=== PATIENT | male | born 1940 | race Caucasian/White ===

== ENCOUNTER 2017-08-11 10:17 | Emergency (ER) | payer MEDICARE, OTHER ==
--- NOTE | 2017-08-11 11:17 | XRAY Report ---
EXAM: CHEST RADIOGRAPHY EXAM DATE: 08/11/2017 10:59 AM. CLINICAL HISTORY: Cough. Shortness of breath. COMPARISON: None. TECHNIQUE: 2 views. FINDINGS: Lungs/Pleura: Ill-defined lobular opacity along the peripheral left mid lower lung measuring 2 cm. Mi nimal basilar scar/atelectasis. No pleural effusions . No vascular congestion. No pneumothorax. Mediastinum: Heart size is normal. Aorta slightly tortuous. Other: Degenerative changes of the thoracic spine. IMPRESSION: 1. Lobular 2 cm peripheral left mid and lower lung opacity which may represent an area of developing consolidation, parenchymal scarring or parenchymal nodule. Follow-up radiographs are warranted in 3-4 weeks to assess for change/resolution unless chest CT is considered more urgently clinically warrant ed. [facility] Referring Provider Line: [phone] SITE ID: [id number]
--- NOTE | 2017-08-11 12:06 | ED Physician Documentation ---
PD HPI URI - Stated complaint Stated Complaint: COLDS - Chief complaint Chief Complaint: Resp - History obtained from History obtained from: Patient - History of Present Illness Timing - onset: How many days ago (10) Timing duration: Days (10) Timing details: Gradual onset Pain level max: 4 Pain level now: 4 Associated symptoms: Fever (says no fevers, but chills. Stopped 2 days ago), Chills, Nasal congestion, Rhinorrhea, Productive cough (green. slightly bloody at times). No: Sore throat, Swollen nodes Contributing factors: Sick contact Improves by: Rest Worsened by: Activity, Breathing Similar symptoms before: Diagnosis (pneumonia) Recently seen: Not recently seen Review of Systems Constitutional: reports: Chills Nose: reports: Rhinorrhea / runny nose, Congestion Skin: denies: Rash Neurologic: denies: Headache PD PAST MEDICAL HISTORY - Past Medical History Past Medical History: No - Past Surgical History Past Surgical History: Yes General: Appendectomy - Present Medications Home Medications: Ambulatory Orders Medication Instructions Recorded Confirmed Doxycycline Hyclate 100 mg PO BID #20 capsule 08/11/17 - Allergies Allergies/Adverse Reactions: Allergies Allergy/AdvReac Type Severity Reaction Status Date / Time No Known Drug Allergies Allergy Verified 03/29/16 18:55 - Social History Does the pt smoke?: Yes Smoking Status: Current every day smoker Does the pt drink ETOH?: No Does the pt have substance abuse?: No - Immunizations Immunizations are current?: No - POLST Patient has POLST: No PD ED PE NORMAL - Vitals Vital signs reviewed: Yes - General General: Alert and oriented X 3, No acute distress, Well developed/nourished - HEENT HEENT: PERRL, Ears normal, Moist mucous membranes, Pharynx benign - Neck Neck: Supple, no meningeal sign - Cardiac Cardiac: RRR, Strong equal pulses - Respiratory Respiratory: No respiratory distress, Clear bilaterally - Abdomen Abdomen: Soft, Non tender, Non distended - Derm Derm: Warm and dry, No rash - Neuro Neuro: Alert and oriented X 3 - Psych Psych: Normal mood, Normal affect Results - Vitals Vitals: Vital Signs - 24 hr 08/11/17 10:21 Temperature 35.8 C L Heart Rate 81 Respiratory 17 Rate Blood Pressure 146/83 H O2 Saturation 99 Oxygen O2 Source Room air - Rads (name of study) cxr Radiology: Prelim report reviewed, EMP read contemporaneously (Lobular 2 cm peripheral left mid and lower lung opacity which may represent an area of developing consolidation, parenchymal scarring or parenchymal nodule. Follow-up radiographs are warranted in 3-4 weeks to assess for change/resolution unless chest CT is considered more urgently clinically warranted.) PD MEDICAL DECISION MAKING - ED course Complexity details: reviewed results, re-evaluated patient, considered differential, d/w patient ED course: Patient is a 76-year-old male who presents to the emergency department with 10 days of coughing. Has had chills but no fevers. He is a smoker. No hypoxia here. No respiratory distress. Lungs are clear to auscultation bilaterally. Appears to have pneumonia on chest x-ray, will treat with doxycycline. We will have him follow-up with his doctor for further evaluation and care. We will have him follow-up with his doctor for a repeat chest x-ray in 3-4 weeks as well. Patient counseled regarding signs and symptoms for which I believe and urgent re-evaluation would be necessary. Patient with good understanding of and agreement to plan and is comfortable going home at this time This document was made in part using voice recognition software. While efforts are made to proofread this document, sound alike and grammatical errors may occur. Departure - Departure Disposition: 01 Home, Self Care Clinical Impression: Pneumonia Qualifiers: Pneumonia type: due to unspecified organism Laterality: left Lung location: lower lobe of lung Qualified Code(s): J18.1 - Lobar pneumonia, unspecified organism Condition: Good Instructions: ED Pneumonia Adult Follow-Up: Wil Disla MD [Primary Care Provider] - Within 1 week Prescriptions: Doxycycline Hyclate 100 mg PO BID #20 capsule Comments: Take all antibiotics until gone. Return if you worsen. You need to have a repeat chest x-ray in 3-4 weeks to ensure that the infection has cleared and that there is no evidence of a tumor or mass under the infection.
[2017-08-11 12:15] VITALS: BP 139/76
== END 2017-08-11 12:20 | disposition home or self-care (01) ==
LOC: ED 10:17
DX: J18.9 Pneumonia, unspecified organism (principal); F17.200 Nicotine dependence, unspecified, uncomplicated
CPT/HCPCS: 71046; 99283

== ENCOUNTER 2017-08-29 09:21 | Emergency (ER) | payer MEDICARE, OTHER ==
--- NOTE | 2017-08-29 10:36 | XRAY Preliminary Report ---
Exam: XR CHEST 2 VIEW X-RAY IMPRESSION: 1. Resolving ill-defined opacity in the peripheral lower left lung. 2. Suspect mild lingular atelectasis or scarring. No teddy consolidation. 3. Mild hyperinflation. [facility] SITE ID: [id number]
--- NOTE | 2017-08-29 10:37 | XRAY Report ---
EXAM: CHEST RADIOGRAPHY EXAM DATE: 08/29/2017 10:21 AM. CLINICAL HISTORY: Cough. COMPARISON: 08/11/2017. TECHNIQUE: 2 views. FINDINGS: Lungs/Pleura: Decreased conspicuity of ill-defined lobular opacity in the peripheral left lower chest . Mild lingular opacities suggestive of atelectasis or scarring. No new airspace infiltrate or vascul ar congestion. Lungs are mildly hyperinflated. Clear right lung. No pleural effusion or pneumothorax. Mediastinum: Stable cardiomediastinal silhouette. No cardiomegaly. Bones: Unchanged. IMPRESSION: 1. Resolving ill-defined opacity in the peripheral lower left lung. 2. Suspect mild lingular atelectasis or scarring. No teddy consolidation. 3. Mild hyperinflation. [facility] Referring Provider Line: [phone] SITE ID: [id number]
[2017-08-29] MEDS ORDERED: IPRATROPIUM/ALBUTEROL 3 ML NEB INH STA (11:17)
--- NOTE | 2017-08-29 11:20 | ED Physician Documentation ---
PD HPI DYSPNEA - Stated complaint Stated Complaint: FLU LIKE SYMPTOM - Chief complaint Chief Complaint: Resp - History obtained from History obtained from: Patient - History of Present Illness Timing - onset: Yesterday Timing - details: Still present Worsened by: Exertion, Coughing Associated symptoms: Fever, Cough. No: Chest pain / discomfort Recently seen: Emergency Dept (He was seen here 2-1/2 weeks ago and diagnosed with pneumonia, for which he was treated with doxycycline.) - Additional information Additional information: The patient is a 76-year-old male who presents with productive cough that started yesterday and continues today. He reports associated shortness of breath and intermittent fever. He denies chest pain, headache, or sore throat. He was seen here 2 1/2 weeks ago and diagnosed with pneumonia for which he underwent 10 day course of doxycycline. His symptoms improved until yesterday. He continues to smoke cigarettes. Review of Systems Constitutional: reports: Fever Eyes: denies: Discharge Ears: denies: Ear pain Nose: reports: Congestion Throat: denies: Sore throat Cardiac: denies: Chest pain / pressure Respiratory: reports: Dyspnea, Cough GI: denies: Abdominal Pain, Nausea, Vomiting : denies: Dysuria Skin: denies: Rash Musculoskeletal: denies: Back pain, Extremity pain Neurologic: denies: Focal weakness, Numbness, Headache PD PAST MEDICAL HISTORY - Past Medical History Past Medical History: No Cardiovascular: None Neuro: None Endocrine/Autoimmune: None - Past Surgical History Past Surgical History: Yes General: Appendectomy - Present Medications Home Medications: Ambulatory Orders Medication Instructions Recorded Confirmed Benzonatate [Tessalon Perle] 100 mg PO BID PRN #10 capsule 08/29/17 Oseltamivir [Tamiflu] 75 mg PO ONCE #7 capsule 08/29/17 - Allergies Allergies/Adverse Reactions: Allergies Allergy/AdvReac Type Severity Reaction Status Date / Time No Known Drug Allergies Allergy Verified 08/29/17 09:53 - Social History Does the pt smoke?: Yes Smoking Status: Current every day smoker Does the pt drink ETOH?: No Does the pt have substance abuse?: No - Immunizations Immunizations are current?: No - POLST Patient has POLST: No PD ED PE NORMAL - Vitals Vital signs reviewed: Yes (Mild systolic hypertension initially.) - General General: Alert and oriented X 3, Well developed/nourished - HEENT HEENT: Atraumatic, Ears normal, Pharynx benign, Other (Decreased hearing ability in the right ear.) - Neck Neck: Supple, no meningeal sign, No adenopathy, No JVD - Cardiac Cardiac: RRR, No murmur - Respiratory Respiratory: Other (Expiratory wheezes on the left. No rales or rhonchi.) - Abdomen Abdomen: Soft, Non tender - Back Back: No CVA TTP - Derm Derm: No rash - Extremities Extremities: No edema, No calf tenderness / cord - Neuro Neuro: Alert and oriented X 3, No motor deficit, No sensory deficit Results - Vitals Vitals: Vital Signs - 24 hr 08/29/17 12:28 Temperature 36.3 C L Heart Rate 73 Respiratory 22 Rate Blood Pressure 143/63 H O2 Saturation 98 Oxygen O2 Source Room air - Labs Labs: Laboratory Tests 08/29/17 11:25 Influenza A (Rapid) POS Influenza B (Rapid) NEG Influenza Types A,B Ag + H - Rads (name of study) CXR Radiology: Prelim report reviewed, EMP read contemporaneously, See rad report ( Resolving ill-defined opacity in the peripheral lower left lung. Suspect mild lingular atelectasis or scarring. No teddy consolidation. Mild hyperinflation. ) PD MEDICAL DECISION MAKING - ED course Complexity details: reviewed old records, reviewed results, re-evaluated patient , considered differential, d/w patient ED course: The patient's presentation is significant for influenza, with associated dyspnea and wheezing. Chest x-ray reveals improvement of the left upper lobe infiltrate compared to previous chest x-ray of 08/11/2017. Treatment in the emergency department included administration of DuoNeb nebulizer, which cleared his wheezing. Tamiflu 75 mg was administered orally. He is being discharged with prescriptions for Tamiflu and for Tessalon Perles. I discussed with him the expected course of illness, symptomatic treatment and outpatient follow-up, as well as potentially worrisome signs or symptoms that should prompt reevaluation in the emergency department. Departure - Departure Disposition: 01 Home, Self Care Clinical Impression: Influenza B Condition: Stable Instructions: ED Flu Follow-Up: Wil Disla MD [Provider Admit Priv/Credential] - Prescriptions: Benzonatate [Tessalon Perle] 100 mg PO BID PRN #10 capsule PRN Reason: Cough Oseltamivir [Tamiflu] 75 mg PO ONCE #7 capsule Comments: You can use Tamiflu as prescribed. You can use Tessalon as prescribed if needed for cough. You can use Tylenol or ibuprofen if needed for fever or discomfort. Follow up with your primary physician within 1-2 weeks. Call to schedule appointment. Return to the emergency department if you develop increasing difficulty breathing, or otherwise worsening symptoms. Discharge Date/Time: 08/29/17 12:45
[2017-08-29] MEDS ORDERED: OSELTAMIVIR 75 MG CAPSULE PO STA (12:07)
[2017-08-29 12:28] VITALS: BP 143/63
== END 2017-08-29 12:45 | disposition home or self-care (01) ==
LOC: ED 09:21
DX: J10.1 Influenza due to other identified influenza virus with other respiratory manifestations (principal); F17.200 Nicotine dependence, unspecified, uncomplicated
CPT/HCPCS: 71046; 87275; 87276; 94640; 99283; A9270; J7620

== ENCOUNTER 2018-10-01 14:02 | Outpatient (CLI) | payer MEDICARE, OTHER ==
[2018-10-01 14:33] LABS: CREATININE 0.9 mg/dL (0.6-1.2)
--- NOTE | 2018-10-01 16:20 | CT Report ---
Reason: CHOLESTEATOMA Procedure Date: 10/01/2018 Accession Number: [id number] / [id number] Procedure: CT - IAC'S WO CPT Code: 30084 FULL RESULT: EXAM: CT TEMPORAL BONE EXAM DATE: 10/01/2018 03:34 PM. CLINICAL HISTORY: Cholesteatoma. COMPARISON: None. TECHNIQUE: Routine axial CT imaging performed through the temporal bones. Reconstructions: Coronal, sagittal, Stenver orientation, Poschl orientation. IV contrast: None. In accordance with CT protocol optimization, one or more of the following dose reduction techniques were utilized for this exam: automated exposure control, adjustment of mA and/or KV based on patient size, or use of iterative reconstructive technique. FINDINGS: Right: External Auditory Canal: Patent without mass lesion or exostosis. Middle Ear and Ossicles: Tympanic membrane is normal. The middle ear, including Prussak's space, is clear. The scutum and ossicles are intact without bone erosion. Course of the facial nerve is unremarkable. Cochlea and Vestibular Apparatus: The cochlea and vestibular apparatus demonstrate normal morphology. No evidence of semicircular canal dehiscence. No evidence of vestibular aqueduct enlargement. Internal Auditory Canals: Unremarkable. Bones: Normal. No fracture or bone lesions. Mastoids: Opacification is seen involving several inferior mastoid air cells. Otherwise mastoid air cells and mastoid antrum are clear. Left: External Auditory Canal: Moderate circumferential soft tissue thickening is seen within the EAC. Lobularity and irregularity of the cortical surface is seen especially anteriorly and inferiorly. No extension through the temporal bone into mastoid air cells or the TMJ is appreciated. Middle Ear and Ossicles: Mild thickening of the tympanic membrane is noted. Patchy areas of soft tissue opacity are seen in the middle ear cavity. Small focus of soft tissue density is seen at the level of the Prussak space. Mild soft tissue density is seen at the level of the oval window. The scutum and ossicles are intact without definite bone erosion. Course of the facial nerve is unremarkable. Cochlea and Vestibular Apparatus: The cochlea and vestibular apparatus demonstrate normal morphology. No evidence of semicircular canal dehiscence. No evidence of vestibular aqueduct enlargement. Internal Auditory Canals: Unremarkable. Bones: Normal. No fracture or bone lesions. Mastoids: Opacification and partial opacification are seen diffusely involving peripheral mastoid air cells. The mastoid antrum is clear. Other: None. IMPRESSION: CT scan of the right temporal bone: 1. Opacification is seen involving several inferior mastoid air cells. 2. Otherwise negative CT scan of the temporal bone. CT scan of the left temporal bone: 1. Circumferential soft tissue thickening in the EAC. Mild cortical irregularity is seen predominating in the inferior and anterior margin of the EAC. Findings could represent EAC cholesteatoma. Differential considerations would include fibrosis and inflammatory debris. 2. Small foci of soft tissue density seen in the middle ear cavity. This is located at Prussak's space and at the level of the oval window. Mild thickening and retraction of the tympanic membrane is seen. Findings may represent postinflammatory sequela. No definite bone erosion is seen to suggest cholesteatoma. 3. Diffuse opacification and partial opacification involving peripheral left mastoid air cells. [facility]
== END 2018-10-01 14:03 | disposition home or self-care (01) ==
LOC: LAB 14:02 → DI 14:03
PROVIDERS: ATTEND Specialist
DX: H71.92 Unspecified cholesteatoma, left ear (principal)
CPT/HCPCS: 36415; 70480; 82565

== ENCOUNTER 2021-03-08 15:52 | Emergency (ER) | payer MEDICARE, OTHER ==
[2021-03-08 16:18] LABS: BASOPHILS # (AUTO) 0.1 10^3/uL (0.0-0.1); BASOPHILS % (AUTO) 0.6 %; EOSINOPHILS # (AUTO) 0.1 10^3/uL (0.0-0.7); EOSINOPHILS % (AUTO) 1.1 %; HCT - HEMATOCRIT 45.6 % (42.0-52.0); HGB - HEMOGLOBIN 15.2 g/dL (14.0-18.0); LYMPHOCYTES # (AUTO) 1.5 10^3/uL (1.5-3.5); LYMPHOCYTES % (AUTO) 12.9 %; MEAN CORPUSCULAR HEMOGLOBIN 31.7 pg (27.0-31.0); MEAN CORPUSCULAR HGB CONC 33.3 g/dL (32.0-36.0); MONOCYTES # (AUTO) 0.7 10^3/uL (0.0-1.0); MONOCYTES % (AUTO) 5.9 %; NEUTROPHILS # (AUTO) 9.1 10^3/uL (1.5-6.6); NEUTROPHILS % (AUTO) 79.2 %; PLT - PLATELET COUNT 222 10^3/uL (130-450); RED CELL DISTRIBUTION WIDTH 13.1 % (12.0-15.0); WHITE BLOOD COUNT 11.5 x10^3/uL (4.8-10.8)
[2021-03-08] MEDS ORDERED: IPRATROPIUM 0.2 MG/ML NEB INH STA (16:18)
[2021-03-08] MEDS ORDERED: ALBUTEROL NEB 2.5 MG/3 ML INH STA (16:18)
--- NOTE | 2021-03-08 16:21 | ED Physician Documentation ---
History of Present Illness - Stated complaint Stated Complaint: SOA/WEAK/DIZZY - Chief complaint Chief Complaint: General - Additonal information Additional information: 80-year-old male presents the emergency department for evaluation of acute onset dyspnea. He reports that at home he was in an enclosed room, with the window open, using an alcohol-based detergent to clean carpet that had gotten wet. He had been in the room for about an hour to 90 minutes when he began to develop the respiratory distress. He has had no recent cough, cold congestion or fevers. He is an active daily tobacco user. His thinks that he has undiagnosed COPD but has never been treated for this. He takes no medications with the exception of a daily multivitamin. He is vaccinated for COVID-19. He denies any history of heart disease. Review of Systems Constitutional: denies: Fever, Chills Eyes: reports: Reviewed and negative Ears: reports: Reviewed and negative Nose: reports: Reviewed and negative Throat: reports: Reviewed and negative Cardiac: reports: Reviewed and negative Respiratory: reports: Dyspnea. denies: Cough GI: denies: Abdominal Pain, Abdominal Swelling, Nausea : denies: Dysuria, Frequency Skin: reports: Reviewed and negative Musculoskeletal: reports: Reviewed and negative Neurologic: reports: Reviewed and negative PD PAST MEDICAL HISTORY - Past Medical History Cardiovascular: None Endocrine/Autoimmune: None - Past Surgical History Past Surgical History: Yes General: Appendectomy - Present Medications Home Medications: Ambulatory Orders Medication Instructions Recorded Confirmed Albuterol Sulfate [Proair Hfa 1 - 2 puffs INH Q4H PRN #1 gm 03/08/21 Inhaler] Multivit-Min/FA/Lycopen/Lutein 1 each PO DAILY 03/08/21 03/08/21 [Centrum Silver Men Tablet] dexAMETHasone [Decadron] 4 mg PO DAILY #4 tablet 03/08/21 - Allergies Allergies/Adverse Reactions: Allergies Allergy/AdvReac Type Severity Reaction Status Date / Time No Known Drug Allergies Allergy Verified 03/08/21 15:56 - Social History Does the pt smoke?: Yes Smoking Status: Current every day smoker Does the pt drink ETOH?: No Does the pt have substance abuse?: No - Immunizations Immunizations are current?: No - POLST Patient has POLST: No PD ED PE EXPANDED - General General: Alert, No acute distress - Neck Neck: Supple w/out meningeal sx. No: Adenopathy - Cardiac Cardiac: Regular Rate, Radial strong equal, Cap refill < 2 sec, Prolonged cap refill. No: Murmur Present - Respiratory Respiratory: Labored (Mild tachypnea in the mid 20s. Saturations 96% room air. Faint global respiratory wheeze. No crackles or rhonchi appreciated.), Wheezing - Abdomen Abdomen: Normal Bowel sounds. No: Tender to palpation - Back Back: Normal exam - Extremities Extremities: Normal. No: Deformity, Tenderness - Neuro Neuro: Alert and Oriented X 3, CNII-XII intact - GCS Eye Opening: Spontaneous Motor: Obeys Commands Verbal: Oriented Total: 15 Results - Vitals Vitals: Vital Signs - 24 hr 03/08/21 03/08/21 03/08/21 15:56 16:17 16:45 Temperature 36.5 C Heart Rate 85 68 Respiratory 16 16 Rate Blood Pressure 164/72 H O2 Saturation 94 96 Oxygen O2 Source Room air - EKG (time done) 1628 Rate: Rate (enter#) (72) Rhythm: NSR [place]: Normal Intervals: Normal IA QRS: Normal, Low voltage Ischemia: Normal ST segments Compare to prior EKG: Old EKG unavailable Computer interpretation: Agree with computer - Labs Labs: Laboratory Tests 03/08/21 03/08/21 03/08/21 16:11 16:11 16:11 WBC 11.5 H RBC 4.80 Hgb 15.2 Hct 45.6 MCV 95.0 H MCH 31.7 H MCHC 33.3 RDW 13.1 Plt Count 222 MPV 9.0 Neut # (Auto) 9.1 H Lymph # (Auto) 1.5 Sharp # (Auto) 0.7 Eos # (Auto) 0.1 Baso # (Auto) 0.1 Absolute Nucleated RBC 0.00 Nucleated RBC % 0.0 Sodium 135 Potassium 3.9 Chloride 100 L Carbon Dioxide 25 Anion Gap 10.0 BUN 15 Creatinine 0.9 Estimated GFR (MDRD) 81 L Glucose 106 H Calcium 9.1 Total Bilirubin 1.4 H AST 23 ALT 17 Alkaline Phosphatase 42 Troponin I High Sens 6.6 B-Natriuretic Peptide Total Protein 7.2 Albumin 4.4 Globulin 2.8 Albumin/Globulin Ratio 1.6 Lipase 27 Nasal Adenovirus (PCR) Nasal B. parapertussis DNA (PCR) Nasal Coronavir 229E PCR Nasal Coronavir HKU1 PCR Nasal Coronavir NL63 PCR Nasal Coronavir OC43 PCR Nasal Enterovir/Rhinovir PCR Nasal Influenza B PCR Nasal Influenza A PCR Nasal Parainfluen 1 PCR Nasal Parainfluen 2 PCR Nasal Parainfluen 3 PCR Nasal Parainfluen 4 PCR Nasal RSV (PCR) Nasal B.pertussis DNA PCR Nasal C.pneumoniae (PCR) [place] Human Metapneumo PCR Nasal M.pneumoniae (PCR) Nasal SARS-CoV-2 (PCR) 03/08/21 03/08/21 16:11 16:21 WBC RBC Hgb Hct MCV MCH MCHC RDW Plt Count MPV Neut # (Auto) Lymph # (Auto) Sharp # (Auto) Eos # (Auto) Baso # (Auto) Absolute Nucleated RBC Nucleated RBC % Sodium Potassium Chloride Carbon Dioxide Anion Gap BUN Creatinine Estimated GFR (MDRD) Glucose Calcium Total Bilirubin AST ALT Alkaline Phosphatase Troponin I High Sens B-Natriuretic Peptide 46 Total Protein Albumin Globulin Albumin/Globulin Ratio Lipase Nasal Adenovirus (PCR) NOT DETECTED Nasal B. parapertussis DNA (PCR) NOT DETECTED Nasal Coronavir 229E PCR NOT DETECTED Nasal Coronavir HKU1 PCR NOT DETECTED Nasal Coronavir NL63 PCR NOT DETECTED Nasal Coronavir OC43 PCR NOT DETECTED Nasal Enterovir/Rhinovir PCR NOT DETECTED Nasal Influenza B PCR NOT DETECTED Nasal Influenza A PCR NOT DETECTED Nasal Parainfluen 1 PCR NOT DETECTED Nasal Parainfluen 2 PCR NOT DETECTED Nasal Parainfluen 3 PCR NOT DETECTED Nasal Parainfluen 4 PCR NOT DETECTED Nasal RSV (PCR) NOT DETECTED Nasal B.pertussis DNA PCR NOT DETECTED Nasal C.pneumoniae (PCR) NOT DETECTED [place] Human Metapneumo PCR NOT DETECTED Nasal M.pneumoniae (PCR) NOT DETECTED Nasal SARS-CoV-2 (PCR) NOT DETECTED - Rads (name of study) CXR Radiology: Final report received (No acute cardiopulmonary process) PD MEDICAL DECISION MAKING - ED course Complexity details: reviewed results, re-evaluated patient, d/w patient ED course: 80-year-old male who is an active daily smoker presents emergency department with acute onset dyspnea. This occurred when he had been in an enclosed room though the window was open cleaning the carpets with an alcohol-based coach cleaner. Initially he presented mildly tachypneic with respiratory rate in the 40s and with some wheeze. The tachypnea and the wheeze 100% resolved following an albuterol treatment with Atrovent. Chest x-ray is unremarkable and does not show findings of pneumonia. Respiratory PCR negative for Covid. Screening labs are essentially unremarkable including high-sensitivity troponin. His EKG is nonischemic. This gentleman is a daily smoker and I suspect that what he likely has is a reactive airway disorder secondary to the chemical exposure while cleaning the carpets. He will be discharged with a 5-day course of Decadron as well as an albuterol inhaler. The patient and his are advised to fully air out his bedroom before he sleeps in it again. Emergent return precautions were discussed for worsening symptoms. Departure - Departure Disposition: 01 Home, Self Care Clinical Impression: Shortness of breath Condition: Stable Record reviewed to determine appropriate education?: Yes Prescriptions: dexAMETHasone [Decadron] 4 mg PO DAILY #4 tablet Albuterol Sulfate [Proair Hfa Inhaler] 1 - 2 puffs INH Q4H PRN #1 gm PRN Reason: Shortness Of Air/Wheezing Comments: Marco Antonio foreman were seen in the emergency department today after developing respiratory distress while cleaning the carpets of your bedroom with an alcohol- based barrel cleaner with only the window open a short way. You most likely have a reactive airway disease that has improved with the breathing treatment we gave you. Because you are a daily smoker and I suspect that you have underlying COPD I would like you to fill the prescription for the steroids and begin taking every day for the next 4 days. Your first dose was given here in the emergency department. However your screening labs EKG and chest x-ray are all essentially normal. I encourage you to sleep outside of your bedroom for the next 48 to 72 hours until the carpet is completely dry and free of the chemicals as I would hate for you to have another bout of respiratory distress. Please return to the emergency department with any further emergent concerns.
[2021-03-08 16:33] LABS: ALBUMIN 4.4 g/dL (3.2-5.5); ALBUMIN/GLOBULIN RATIO 1.6 (1.0-2.2); BILIRUBIN,TOTAL 1.4 mg/dL (0.2-1.0); CALCIUM 9.1 mg/dL (8.5-10.3); CREATININE 0.9 mg/dL (0.6-1.2); POTASSIUM 3.9 mmol/L (3.5-5.0); TOTAL PROTEIN 7.2 g/dL (6.7-8.2)
--- NOTE | 2021-03-08 16:44 | XRAY Report ---
PROCEDURE: Chest 1 View X-Ray INDICATIONS: Chest Pain TECHNIQUE: One view of the chest was acquired. COMPARISON: 08/29/2017 FINDINGS: Surgical changes and devices: None. Lungs and pleura: No pleural effusions or pneumothorax. Lungs are clear. Mediastinum: Mediastinal contours appear normal. Heart size is normal. Bones and chest wall: No suspicious bony lesions. Overlying soft tissues appear unremarkable. IMPRESSION: No evidence acute pulmonary process. Reviewed by: Rashid Cox MD on 03/08/2021 4:43 PM PDT Approved by: Rashid Cox MD on 03/08/2021 4:43 PM PDT Station ID: [id number]
[2021-03-08] MEDS ORDERED: IPRATROPIUM/ALBUTEROL 3 ML NEB INH SCH (17:00)
[2021-03-08 17:20] LABS: B. PARAPERTUSSIS- RESP PCR PAN NOT DETECTED; B. PERTUSSIS- RESP PCR PANEL NOT DETECTED; C. PNEUMONIAE- RESP PCR PANEL NOT DETECTED; CORONAVIRUS 229E-RESP PCR NOT DETECTED; CORONAVIRUS HKU1-RESP PCR NOT DETECTED; CORONAVIRUS NL63-RESP PCR NOT DETECTED; CORONAVIRUS OC43-RESP PCR NOT DETECTED; HUMAN METAPNEUMOVIRUS NOT DETECTED; INFLUENZA A- RESP PCR PANEL NOT DETECTED; INFLUENZA B - RESP PCR PANEL NOT DETECTED; M. PNEUMONIAE- RESP PCR PANEL NOT DETECTED; PARAINFLUENZA VIRUS 1 NOT DETECTED; PARAINFLUENZA VIRUS 2 NOT DETECTED; PARAINFLUENZA VIRUS 3 NOT DETECTED; PARAINFLUENZA VIRUS 4 NOT DETECTED; RHINOVIRUS/ENTEROVIRUS NOT DETECTED; RSV- RESP PCR PANEL NOT DETECTED; SARS-CoV-2 -RESP PCR PANEL NOT DETECTED
[2021-03-08] MEDS ORDERED: DEXAMETHASONE 10 MG/ML VIAL PO STA (17:29)
[2021-03-08] MEDS ORDERED: CHERRY SYRUP 10 ML UDC PO ONE (17:29)
[2021-03-08 17:30] VITALS: BP 138/70
== END 2021-03-08 17:51 | disposition home or self-care (01) ==
LOC: ED 15:52
DX: R06.02 Shortness of breath (principal); Z72.0 Tobacco use; Z20.822 Contact with and (suspected) exposure to COVID-19
CPT/HCPCS: 36415; 71045; 80053; 83690; 83880; 84484; 85025; 87631; 93005; 94640; 99283; 99284; A9270; 0202U

== ENCOUNTER 2022-05-04 11:39 | Emergency (ER) | payer MEDICARE, OTHER ==
[2022-05-04 12:02] VITALS: BP 134/67
--- NOTE | 2022-05-04 13:44 | ED Physician Documentation ---
PD HPI SKIN - Stated complaint Stated Complaint: MEDICATION REACTION - Chief complaint Chief Complaint: Wound - History obtained from History obtained from: Patient - Additional information Additional information: Patient is an 81-year-old male with a history of skin cancer presenting for evaluation of rash which he believes is a medication reaction. Patient sees a account executive and has been using 5 fluorouracil for quite some time but was recently recommended to apply it to a larger area of his scalp. He did this for the first time last night when he woke up this morning had severe discomfort to his scalp with crusting and yellow drainage. He did wash off the ointment.He denies fever, headache, Difficulty breathing. Review of Systems Constitutional: denies: Fever Nose: denies: Congestion Cardiac: denies: Chest pain / pressure Respiratory: denies: Dyspnea GI: denies: Abdominal Pain Skin: reports: Rash Musculoskeletal: denies: Back pain Neurologic: denies: Headache PD PAST MEDICAL HISTORY - Past Medical History Cardiovascular: None Endocrine/Autoimmune: None - Past Surgical History Past Surgical History: Yes General: Appendectomy - Present Medications Home Medications: Ambulatory Orders Medication Instructions Recorded Confirmed Albuterol Sulfate [Proair Hfa 1 - 2 puffs INH Q4H PRN #1 gm 03/08/21 Inhaler] Multivit-Min/FA/Lycopen/Lutein 1 each PO DAILY 03/08/21 03/08/21 [Centrum Silver Men Tablet] dexAMETHasone [Decadron] 4 mg PO DAILY #4 tablet 03/08/21 Cetirizine [ZyrTEC] 10 mg PO DAILY #7 tablet 05/04/22 cephALEXin [Keflex] 500 mg PO Q6H #28 cap 05/04/22 - Allergies Allergies/Adverse Reactions: Allergies Allergy/AdvReac Type Severity Reaction Status Date / Time No Known Drug Allergies Allergy Verified 03/08/21 15:56 - Social History Does the pt smoke?: Yes Smoking Status: Current every day smoker Does the pt drink ETOH?: No Does the pt have substance abuse?: No - Immunizations Immunizations are current?: No - POLST Patient has POLST: No PD ED PE NORMAL - General General: Alert and oriented X 3, No acute distress, Well developed/nourished - HEENT HEENT: Atraumatic, Pharynx benign, Other (Redness and peeling to Large area of frontal scalp and right outer ear scalp with areas of crusted yellow drainage, no vesicles) - Neck Neck: Supple, no meningeal sign - Respiratory Respiratory: No respiratory distress - Derm Derm: Other (Redness and peeling to Large area of frontal scalp and right outer ear scalp with areas of crusted yellow drainage, no vesicles) - Neuro Neuro: Normal speech PD ED PE EXPANDED - HEENT HEENT Visual: 1 - rash 2 - rash Results - Vitals Vitals: Vital Signs - 24 hr 05/04/22 11:59 Temperature 37.0 C Heart Rate 70 Respiratory 18 Rate Blood Pressure 134/67 H O2 Saturation 99 Oxygen O2 Source Room air PD MEDICAL DECISION MAKING - ED course Complexity details: reviewed results, re-evaluated patient, d/w patient ED course: Patient with large area of redness and superficial skin peeling with patches of crusted yellow drainage to scalp in distribution of where he used 5- fluorouracil. Patient has washed off the ointment. I am concerned he is having an adverse reaction to this medication. I have recommended that he hold on us ing this medication until consulting with his account executive. I am also concerned that there is a superimposed infection as the areas of the yellow crusting and drainage are suspicious for impetigo so we will start patient on Keflex given widespread area. I do not want to use anything topically on Areas that are red And peeling. Rash does not appear toxic in nature such as SJS. Patient counseled on concerning symptoms to return for as well as need for follow-up with account executive. Departure - Departure Disposition: 01 Home, Self Care Clinical Impression: Impetigo Medication reaction Qualifiers: Encounter type: initial encounter Qualified Code(s): T50.905A - Adverse effect of unspecified drugs, medicaments and biological substances, initial encounter Condition: Stable Instructions: Impetigo, ED Drug React Allergic Follow-Up: [facility] [Provider Group] Prescriptions: cephALEXin [Keflex] 500 mg PO Q6H #28 cap Cetirizine [ZyrTEC] 10 mg PO DAILY #7 tablet Comments: You appear to be having a reaction to the topical medication you were prescribed. Please stop using this medication immediately. You can use cold compresses over the scalp to help with any discomfort. I will also send a prescription for an antibiotic to [facility] in [place] as I am concerned there is also a superimposed infection given the yellow drainage and crusting.I will also send a prescription for medication to help with an allergic reaction. Please call your account executive on Friday for close follow-up.If you have any worsening symptoms please return to the emergency department. Discharge Date/Time: 05/04/22 13:51
--- OUTSIDE RECORDS SUMMARY | 2022-05-04 13:44 | EXTERNAL MEDICAL SUMMARY RPT | Continuity of Care Document ---
:1940 Author Organization [facility] Address [address] [place] [phone] Phone Allergies and Intolerances date description facility type (no date) No Known Drug Allergies [facility] (unkn own) Encounters No information. Functional Status No information. Immunizations No information. Medications No information. Problems No information. Procedures No information. Results/Labs test date author facility value unit interpret ation Result panel 1 (unknown) (no date) (unknown) (unknown) (no value) (units (un known) unknown) (unknown) (no date) (unknown) (unknown) Date of (units (unkn own) Service: unknown) 03/22/22 (unknown) (no date) (unknown) (unknown) (no value) (units (un known) unknown) (unknown) (no date) (unknown) (unknown) Allergies (units (unk nown) unknown) (unknown) (no date) (unknown) (unknown) Emergency (units (unk nown) Report unknown) (unknown) (no date) (unknown) (unknown) [facility] (units (unkn own) [facility] [address] unknown) [address] [place] [phone] (unknown) (no date) (unknown) (unknown) (no value) (units (un known) unknown) (unknown) (no date) (unknown) (unknown) Patient left (units ( unknown) without being unknown) seen (unknown) (no date) (unknown) (unknown) [id number] (units (unkn own) unknown) (unknown) (no date) (unknown) (unknown) Age/Sex: 81 / (units (unknown) M unknown) (unknown) (no date) (unknown) (unknown) Allergy/AdvRea (units (unknown) c Type Severity unknown) Reaction Status Date / Time (unknown) (no date) (unknown) (unknown) Blood Pressure (units (unknown) 192/80 H unknown) 03/22/22 09:40 (unknown) (no date) (unknown) (unknown) Chief (units (unkn own) complaint: unknown) Skin/Abscess/Fo reign Body (unknown) (no date) (unknown) (unknown) Clinical (units (unkn own) Impression: unknown) (unknown) (no date) (unknown) (unknown) : (units (unkn own) 1940 unknown) Acct:[id number] (unknown) (no date) (unknown) (unknown) Departure (units (unk nown) unknown) (unknown) (no date) (unknown) (unknown) Discharge Plan (units (unknown) unknown) (unknown) (no date) (unknown) (unknown) ER Physician: (units (unknown) Marbin Johnson unknown) P.A-C (unknown) (no date) (unknown) (unknown) Exam (units (unkn own) unknown) (unknown) (no date) (unknown) (unknown) General (units (unkn own) unknown) (unknown) (no date) (unknown) (unknown) HPI - (units (unkn own) Skin/Abscess/Fo unknown) reign Bdy (unknown) (no date) (unknown) (unknown) Initial Vital (units (unknown) Signs unknown) (unknown) (no date) (unknown) (unknown) Initial Vital (units (unknown) Signs: unknown) (unknown) (no date) (unknown) (unknown) Limitations: (units ( unknown) no limitations unknown) (unknown) (no date) (unknown) (unknown) Mode of (units (unkn own) arrival: unknown) Ambulatory (unknown) (no date) (unknown) (unknown) No Known Drug (units (unknown) Allergies unknown) Allergy Verified 03/22/22 09:45 (unknown) (no date) (unknown) (unknown) Oxygen (units (unkn own) Delivery Method unknown) 03/22/22 09:40 (unknown) (no date) (unknown) (unknown) Patient (units (unkn own) Disposition: unknown) Left Without Being Seen (unknown) (no date) (unknown) (unknown) Patient (units (unkn own) History unknown) (unknown) (no date) (unknown) (unknown) Patient: (units (unkn own) Marco Antonio Buck unknown) MR#: [id number] (unknown) (no date) (unknown) (unknown) Pulse Oximetry (units (unknown) 97 08/19/22 unknown) 09:40 (unknown) (no date) (unknown) (unknown) Pulse Rate 76 (units (unknown) 03/22/22 09:40 unknown) (unknown) (no date) (unknown) (unknown) Related Data (units ( unknown) unknown) (unknown) (no date) (unknown) (unknown) Respiratory (units (u nknown) Rate 15 unknown) 03/22/22 09:40 (unknown) (no date) (unknown) (unknown) Signed By: (units (un known) unknown) (unknown) (no date) (unknown) (unknown) Smoking (units (unkn own) Status: Unknown unknown) if ever smoked (unknown) (no date) (unknown) (unknown) Smoking (units (unkn own) Status: Unknown unknown) if ever smoked (unknown) (no date) (unknown) (unknown) Social History (units (unknown) unknown) (unknown) (no date) (unknown) (unknown) Source: (units (unkn own) patient unknown) (unknown) (no date) (unknown) (unknown) Stated (units (unkn own) complaint: Skin unknown) on hands and feet peeling (unknown) (no date) (unknown) (unknown) Substance Use (units (unknown) Type: does not unknown) use (unknown) (no date) (unknown) (unknown) Temperature (units (u nknown) 98.7 F 03/22/22 unknown) 09:40 (unknown) (no date) (unknown) (unknown) Time Seen by (units ( unknown) Provider: unknown) 03/22/22 12:00 (unknown) (no date) (unknown) (unknown) Vital Signs (units (u nknown) unknown) (unknown) (no date) (unknown) (unknown) alcohol intake (units (unknown) frequency: unknown) holidays/specia l occasions only Result panel 2 (unknown) (no date) (unknown) (unknown) (no value) (units (un known) unknown) (unknown) (no date) (unknown) (unknown) Date of (units (unkn own) Service: unknown) 03/22/22 (unknown) (no date) (unknown) (unknown) (no value) (units (un known) unknown) (unknown) (no date) (unknown) (unknown) <Electronicall (units (unknown) y signed by unknown) Marbin Johnson> (unknown) (no date) (unknown) (unknown) 03/22/22 191 (units (unknown) unknown) (unknown) (no date) (unknown) (unknown) Allergies (units (unk nown) unknown) (unknown) (no date) (unknown) (unknown) Emergency (units (unk nown) Report unknown) (unknown) (no date) (unknown) (unknown) [facility] (units (unkn own) [facility] [address] unknown) [address] [place] [phone] (unknown) (no date) (unknown) (unknown) (no value) (units (un known) unknown) (unknown) (no date) (unknown) (unknown) Patient left (units ( unknown) without being unknown) seen (unknown) (no date) (unknown) (unknown) [id number] (units (unkn own) unknown) (unknown) (no date) (unknown) (unknown) Age/Sex: 81 / (units (unknown) M unknown) (unknown) (no date) (unknown) (unknown) Allergy/AdvRea (units (unknown) c Type Severity unknown) Reaction Status Date / Time (unknown) (no date) (unknown) (unknown) Blood Pressure (units (unknown) 192/80 H unknown) 03/22/22 09:40 (unknown) (no date) (unknown) (unknown) Chief (units (unkn own) complaint: unknown) Skin/Abscess/Fo reign Body (unknown) (no date) (unknown) (unknown) Clinical (units (unkn own) Impression: unknown) (unknown) (no date) (unknown) (unknown) : (units (unkn own) 1940 unknown) Acct:[id number] (unknown) (no date) (unknown) (unknown) Departure (units (unk nown) unknown) (unknown) (no date) (unknown) (unknown) Discharge Plan (units (unknown) unknown) (unknown) (no date) (unknown) (unknown) ER Physician: (units (unknown) Marbin Johnson unknown) P.Mercedes (unknown) (no date) (unknown) (unknown) Exam (units (unkn own) unknown) (unknown) (no date) (unknown) (unknown) General (units (unkn own) unknown) (unknown) (no date) (unknown) (unknown) HPI - (units (unkn own) Skin/Abscess/Fo unknown) reign Bdy (unknown) (no date) (unknown) (unknown) HPI narrative: (units (unknown) unknown) (unknown) (no date) (unknown) (unknown) History of (units (un known) Present Illness unknown) (unknown) (no date) (unknown) (unknown) Initial Vital (units (unknown) Signs unknown) (unknown) (no date) (unknown) (unknown) Initial Vital (units (unknown) Signs: unknown) (unknown) (no date) (unknown) (unknown) Limitations: (units ( unknown) no limitations unknown) (unknown) (no date) (unknown) (unknown) MDM - (units (unkn own) Skin/Abscess/Fo unknown) reign Bdy (unknown) (no date) (unknown) (unknown) MDM Narrative (units (unknown) unknown) (unknown) (no date) (unknown) (unknown) Medical (units (unkn own) decision making unknown) narrative: (unknown) (no date) (unknown) (unknown) Mode of (units (unkn own) arrival: unknown) Ambulatory (unknown) (no date) (unknown) (unknown) No Known Drug (units (unknown) Allergies unknown) Allergy Verified 03/22/22 09:45 (unknown) (no date) (unknown) (unknown) Oxygen (units (unkn own) Delivery Method unknown) 03/22/22 09:40 (unknown) (no date) (unknown) (unknown) Patient (units (unkn own) Disposition: unknown) Left Without Being Seen (unknown) (no date) (unknown) (unknown) Patient (units (unkn own) History unknown) (unknown) (no date) (unknown) (unknown) Patient was (units (u nknown) triaged and unknown) roomed by the nurse and left before being seen by this (unknown) (no date) (unknown) (unknown) Patient: (units (unkn own) Marco Antonio Buck unknown) MR#: [id number] (unknown) (no date) (unknown) (unknown) Pulse Oximetry (units (unknown) 97 03/22/22 unknown) 09:40 (unknown) (no date) (unknown) (unknown) Pulse Rate 76 (units (unknown) 03/22/22 09:40 unknown) (unknown) (no date) (unknown) (unknown) Related Data (units ( unknown) unknown) (unknown) (no date) (unknown) (unknown) Respiratory (units (u nknown) Rate 15 unknown) 03/22/22 09:40 (unknown) (no date) (unknown) (unknown) Signed By: (units (un known) unknown) (unknown) (no date) (unknown) (unknown) Smoking (units (unkn own) Status: Unknown unknown) if ever smoked (unknown) (no date) (unknown) (unknown) Smoking (units (unkn own) Status: Unknown unknown) if ever smoked (unknown) (no date) (unknown) (unknown) Social History (units (unknown) unknown) (unknown) (no date) (unknown) (unknown) Source: (units (unkn own) patient unknown) (unknown) (no date) (unknown) (unknown) Stated (units (unkn own) complaint: Skin unknown) on hands and feet peeling (unknown) (no date) (unknown) (unknown) Substance Use (units (unknown) Type: does not unknown) use (unknown) (no date) (unknown) (unknown) Temperature (units (u nknown) 98.7 F 03/22/22 unknown) 09:40 (unknown) (no date) (unknown) (unknown) Time Seen by (units ( unknown) Provider: unknown) 03/22/22 12:00 (unknown) (no date) (unknown) (unknown) Vital Signs (units (u nknown) unknown) (unknown) (no date) (unknown) (unknown) alcohol intake (units (unknown) frequency: unknown) holidays/specia l occasions only (unknown) (no date) (unknown) (unknown) provider. (units (unk nown) unknown) Result panel 3 (unknown) (no (unknown) (unknown) (no value) (units (unk nown) date) unknown) (unknown) (no (unknown) (unknown) Date of Service: (units (unknown) date) 03/22/22 unknown) (unknown) (no (unknown) (unknown) (no value) (units (unk nown) date) unknown) (unknown) (no (unknown) (unknown) <Electronically (units (unknown) date) signed by Marbin unknown) Sudhakar Johnson> (unknown) (no (unknown) (unknown) <Electronically (units (unknown) date) signed by Shauna unknown) Donnell D.O.> (unknown) (no (unknown) (unknown) <Electronically (units (unknown) date) signed by Shauna unknown) Donnell D.O.> (unknown) (no (unknown) (unknown) 03/22/22 1914 (units ( unknown) date) unknown) (unknown) (no (unknown) (unknown) 03/27/22 0703 (units ( unknown) date) unknown) (unknown) (no (unknown) (unknown) Allergies (units (unkn own) date) unknown) (unknown) (no (unknown) (unknown) Emergency Report (units (unknown) date) unknown) (unknown) (no (unknown) (unknown) [facility] (units (unknown) date) [address] [place] [address] unknown) [place] [address] (unknown) (no (unknown) (unknown) (no value) (units (unk nown) date) unknown) (unknown) (no (unknown) (unknown) Patient left (units (u nknown) date) without being unknown) seen (unknown) (no (unknown) (unknown) <Marbin Johnson, (units (unknown) date) DOROTHY - Last unknown) Filed: 03/22/22 19:14> (unknown) (no (unknown) (unknown) <Shauna Jacobo, (units (unknown) date) DO - Last Filed: unknown) 03/27/22 07:03> (unknown) (no (unknown) (unknown) <cosigner> (units (unk nown) date) unknown) (unknown) (no (unknown) (unknown) [id number] (units (unkno wn) date) unknown) (unknown) (no (unknown) (unknown) Age/Sex: 81 / M (units (unknown) date) unknown) (unknown) (no (unknown) (unknown) Allergy/AdvReac (units (unknown) date) Type Severity unknown) Reaction Status Date / Time (unknown) (no (unknown) (unknown) Blood Pressure (units (unknown) date) 192/80 H 03/22/22 unknown) 09:40 (unknown) (no (unknown) (unknown) Chief complaint: (units (unknown) date) Skin/Abscess/Fore unknown) ign Body (unknown) (no (unknown) (unknown) Clinical (units (unkno wn) date) Impression: unknown) (unknown) (no (unknown) (unknown) Cosign (units (unkno wn) date) unknown) (unknown) (no (unknown) (unknown) : 1940 (units (unknown) date) Acct:[id number] unknown) (unknown) (no (unknown) (unknown) Departure (units (unkn own) date) unknown) (unknown) (no (unknown) (unknown) Discharge Plan (units (unknown) date) unknown) (unknown) (no (unknown) (unknown) ED Attending (units (u nknown) date) Cosignature unknown) Attestation: (unknown) (no (unknown) (unknown) ER Physician: (units ( unknown) date) Marbin Johnson unknown) P.A-C (unknown) (no (unknown) (unknown) Exam (units (unkno wn) date) unknown) (unknown) (no (unknown) (unknown) General (units (unkno wn) date) unknown) (unknown) (no (unknown) (unknown) HPI - (units (unkno wn) date) Skin/Abscess/Fore unknown) ign Bdy (unknown) (no (unknown) (unknown) HPI narrative: (units (unknown) date) unknown) (unknown) (no (unknown) (unknown) History of (units (unk nown) date) Present Illness unknown) (unknown) (no (unknown) (unknown) I was (units (unkno wn) date) immediately unknown) available in the department for consultation. Documentation (unknown) (no (unknown) (unknown) Initial Vital (units ( unknown) date) Signs unknown) (unknown) (no (unknown) (unknown) Initial Vital (units ( unknown) date) Signs: unknown) (unknown) (no (unknown) (unknown) Limitations: no (units (unknown) date) limitations unknown) (unknown) (no (unknown) (unknown) MDM - (units (unkno wn) date) Skin/Abscess/Fore unknown) ign Bdy (unknown) (no (unknown) (unknown) MDM Narrative (units ( unknown) date) unknown) (unknown) (no (unknown) (unknown) Medical decision (units (unknown) date) making narrative: unknown) (unknown) (no (unknown) (unknown) Mode of arrival: (units (unknown) date) Ambulatory unknown) (unknown) (no (unknown) (unknown) No Known Drug (units ( unknown) date) Allergies Allergy unknown) Verified 03/22/22 09:45 (unknown) (no (unknown) (unknown) Oxygen Delivery (units (unknown) date) Method 03/22/22 unknown) 09:40 (unknown) (no (unknown) (unknown) Patient (units (unkno wn) date) Disposition: Left unknown) Without Being Seen (unknown) (no (unknown) (unknown) Patient History (units (unknown) date) unknown) (unknown) (no (unknown) (unknown) Patient was (units (un known) date) never seen unknown) (unknown) (no (unknown) (unknown) Patient was (units (un known) date) triaged and unknown) roomed by the nurse and left before being seen by this (unknown) (no (unknown) (unknown) Patient: (units (unkno wn) date) Marco Antonio Buck unknown) MR#: [id number] (unknown) (no (unknown) (unknown) Pulse Oximetry (units (unknown) date) 97 03/22/22 09:40 unknown) (unknown) (no (unknown) (unknown) Pulse Rate 76 (units ( unknown) date) 03/22/22 09:40 unknown) (unknown) (no (unknown) (unknown) Related Data (units (u nknown) date) unknown) (unknown) (no (unknown) (unknown) Respiratory Rate (units (unknown) date) 15 03/22/22 09:40 unknown) (unknown) (no (unknown) (unknown) Signed By: (units (unk nown) date) unknown) (unknown) (no (unknown) (unknown) Smoking Status: (units (unknown) date) Unknown if ever unknown) smoked (unknown) (no (unknown) (unknown) Smoking Status: (units (unknown) date) Unknown if ever unknown) smoked (unknown) (no (unknown) (unknown) Social History (units (unknown) date) unknown) (unknown) (no (unknown) (unknown) Source: patient (units (unknown) date) unknown) (unknown) (no (unknown) (unknown) Stated (units (unkno wn) date) complaint: Skin unknown) on hands and feet peeling (unknown) (no (unknown) (unknown) Substance Use (units ( unknown) date) Type: does not unknown) use (unknown) (no (unknown) (unknown) Temperature 98.7 (units (unknown) date) F 03/22/22 09:40 unknown) (unknown) (no (unknown) (unknown) Time Seen by (units (u nknown) date) Provider: unknown) 03/22/22 12:00 (unknown) (no (unknown) (unknown) Vital Signs (units (un known) date) unknown) (unknown) (no (unknown) (unknown) alcohol intake (units (unknown) date) frequency: unknown) holidays/special occasions only (unknown) (no (unknown) (unknown) has been (units (unkno wn) date) reviewed. I agree unknown) with assessment and plan. (unknown) (no (unknown) (unknown) provider. (units (unkn own) date) unknown) Social History No information. Vital Signs No information.
== END 2022-05-04 13:51 | disposition home or self-care (01) ==
LOC: ED 11:39
DX: L01.00 Impetigo, unspecified (principal); L25.1 Unspecified contact dermatitis due to drugs in contact with skin; T49.8X5A Adverse effect of other topical agents, initial encounter; F17.200 Nicotine dependence, unspecified, uncomplicated; Z85.828 Personal history of other malignant neoplasm of skin
CPT/HCPCS: 99282; 99284

== ENCOUNTER 2022-10-31 08:00 | Outpatient (CLI) | payer MEDICARE, OTHER | END 2022-10-31 23:59 | disposition home or self-care (01) | LOC: LAB.N 08:00 | PROVIDERS: ATTEND Physician Assistant | DX: Z20.822 Contact with and (suspected) exposure to COVID-19 (principal) ==

== ENCOUNTER 2022-10-31 11:13 | Outpatient (CLI) | payer MEDICARE, OTHER ==
--- NOTE | 2022-10-31 12:21 | XRAY Report ---
PROCEDURE: Chest 2 View X-Ray INDICATIONS: UNEXPLAINED COUGH TECHNIQUE: 2 views of the chest were acquired. COMPARISON: 03/08/2021 FINDINGS: Surgical changes and devices: None. Lungs and pleura: There is a new mild to moderate patchy infiltrate at the patient's left lung base. Remainder of the lung parenchyma is clear. No pleural effusion is identified. Mediastinum: Mediastinal contours appear normal. Heart size is normal. Bones and chest wall: No suspicious bony lesions. Overlying soft tissues appear unremarkable. IMPRESSION: 1. [id number] patchy infiltrate at the patient's left lung base suggestive of pneumonia. Clinic al correlation is recommended. 2. Given the imaging findings I would recommend follow-up plain film radiography after patient's symp toms improve to exclude interval clearing. Reviewed by: Bg Cason MD on 10/31/2022 12:19 PM PDT Approved by: Bg Cason MD on 10/31/2022 12:19 PM PDT Station ID: [id number]
== END 2022-10-31 11:14 | disposition home or self-care (01) ==
LOC: DI 11:13
PROVIDERS: ATTEND Physician Assistant
DX: R05.3 Chronic cough (principal); R91.8 Other nonspecific abnormal finding of lung field; Z20.822 Contact with and (suspected) exposure to COVID-19

== ENCOUNTER 2022-12-23 09:32 | Emergency (ER) | payer MEDICARE, OTHER ==
--- NOTE | 2022-12-23 10:13 | XRAY Report ---
PROCEDURE: Chest 2 View X-Ray INDICATIONS: productive cough TECHNIQUE: 2 views of the chest were acquired. COMPARISON: 10/31/2022. FINDINGS: Surgical changes and devices: None. Lungs and pleura: No pleural effusions or pneumothorax. Lungs are clear. Resolution of left basil ar pneumonia. Mediastinum: Mediastinal contours appear normal. Heart size is normal. Bones and chest wall: No suspicious bony lesions. Overlying soft tissues appear unremarkable. IMPRESSION: No acute cardiopulmonary process. Reviewed by: Rashid Cox MD on 12/23/2022 10:12 AM PDT Approved by: Rashid Cox MD on 12/23/2022 10:12 AM PDT Station ID: [id number]
--- NOTE | 2022-12-23 10:40 | ED Physician Documentation ---
PD HPI DYSPNEA - Stated complaint Stated Complaint: SOA COUGH - Chief complaint Chief Complaint: Resp - History obtained from History obtained from: Patient - Additional information Additional information: He has been sick for about a month with a biphasic illness starting with a cough, then getting better then getting worse again over the last 10 days with a cough productive of greenish sputum and shortness of breath. He has no history of Lung problems or fevers. PD PAST MEDICAL HISTORY - Past Medical History Cardiovascular: None Endocrine/Autoimmune: None - Past Surgical History Past Surgical History: Yes General: Appendectomy - Present Medications Home Medications: Ambulatory Orders Medication Instructions Recorded Confirmed Albuterol Sulf [Ventolin Hfa 1 - 2 puffs INH Q4HR PRN #1 each 12/23/22 Inhaler] Doxycycline [Vibramycin] 100 mg PO BID #14 tablet 12/23/22 guaiFENesin/CODEINE [Robitussin AC] 5 - 10 ml PO Q6H PRN #120 ml 12/23/22 predniSONE [Deltasone] 60 mg PO DAILY 5 Days #15 tablet 12/23/22 - Allergies Allergies/Adverse Reactions: Allergies Allergy/AdvReac Type Severity Reaction Status Date / Time No Known Drug Allergies Allergy Verified 12/23/22 09:47 - Social History Does the pt smoke?: Yes Smoking Status: Current every day smoker Does the pt drink ETOH?: No Does the pt have substance abuse?: No - Immunizations Immunizations are current?: No - POLST Patient has POLST: No PD ED PE NORMAL - Vitals Vital signs reviewed: Yes - General General: Alert and oriented X 3, No acute distress - Cardiac Cardiac: RRR, No murmur - Respiratory Respiratory: Other (Wheezy throughout without focal findings, nonlabored) - Abdomen Abdomen: Non tender - Neuro Neuro: Alert and oriented X 3, Normal speech Results - Vitals Vitals: Vital Signs - 24 hr 12/23/22 09:35 Temperature 37.0 C Heart Rate 96 Respiratory 16 Rate Blood Pressure 138/71 H O2 Saturation 96 Oxygen O2 Source Room air - Rads (name of study) 2 view chest x-ray is unremarkable Relevant Findings:: Final report received, EMP independent interpretation of test PD Medical Decision Making - ED course ED course: 82-year-old gentleman who presents with a biphasic illness consistent with bronchitis with wheezing. Given his age and the biphasic illness will treat with antibiotics. Departure - Departure Disposition: Home, Self Care Clinical Impression: Bronchitis Condition: Good Record reviewed to determine appropriate education?: Yes Instructions: ED Upper Resp Infec Abx Tx Prescriptions: Albuterol Sulf [Ventolin Hfa Inhaler] 1 - 2 puffs INH Q4HR PRN #1 each PRN Reason: Shortness Of Air/Wheezing predniSONE [Deltasone] 60 mg PO DAILY 5 Days #15 tablet guaiFENesin/CODEINE [Robitussin AC] 5 - 10 ml PO Q6H PRN #120 ml PRN Reason: Cough Doxycycline [Vibramycin] 100 mg PO BID #14 tablet Comments: I sent your prescriptions electronically to [facility] in [place]. Follow-up with your doctor later this week if not improving, return for new or worsening symptoms.
[2022-12-23 11:17] VITALS: BP 130/78
== END 2022-12-23 11:15 | disposition home or self-care (01) ==
LOC: ED 09:32
DX: J40 Bronchitis, not specified as acute or chronic (principal); F17.200 Nicotine dependence, unspecified, uncomplicated
CPT/HCPCS: 99284

== ENCOUNTER 2022-12-26 00:57 | Emergency (ER) | payer MEDICARE, OTHER ==
[2022-12-26 01:10] VITALS: BP 137/78
--- NOTE | 2022-12-26 01:31 | ED Physician Documentation ---
History of Present Illness - Stated complaint Stated Complaint: RECTAL PX - Chief complaint Chief Complaint: General - History obtained from History obtained from: Patient - Additonal information Additional information: 82-year-old man with history of constipation presents with inability to have a bowel movement for the past 4 days. Patient also states that he passed a large amount of clearish yellow material when he tried to have a bowel movement today. He has been doing suppositories regularly in an effort to move his bowels. denies fever, abd pain, back pain, n/v. +flatus Review of Systems Constitutional: denies: Fever GI: reports: Constipation. denies: Abdominal Pain, Nausea, Vomiting, Bloody / black stool : denies: Dysuria PD PAST MEDICAL HISTORY - Past Medical History Cardiovascular: None Endocrine/Autoimmune: None - Past Surgical History Past Surgical History: Yes General: Appendectomy - Present Medications Home Medications: Ambulatory Orders Medication Instructions Recorded Confirmed Albuterol Sulf [Ventolin Hfa 1 - 2 puffs INH Q4HR PRN #1 each 12/23/22 Inhaler] Doxycycline [Vibramycin] 100 mg PO BID #14 tablet 12/23/22 guaiFENesin/CODEINE [Robitussin AC] 5 - 10 ml PO Q6H PRN #120 ml 12/23/22 predniSONE [Deltasone] 60 mg PO DAILY 5 Days #15 tablet 12/23/22 - Allergies Allergies/Adverse Reactions: Allergies Allergy/AdvReac Type Severity Reaction Status Date / Time No Known Drug Allergies Allergy Verified 12/23/22 09:47 - Social History Does the pt smoke?: Yes Smoking Status: Current every day smoker Does the pt drink ETOH?: No Does the pt have substance abuse?: No - Immunizations Immunizations are current?: No - POLST Patient has POLST: No PD ED PE NORMAL - Vitals Vital signs reviewed: Yes - General General: Alert and oriented X 3, No acute distress, Well developed/nourished - HEENT HEENT: Atraumatic, PERRL, EOMI - Neck Neck: Supple, no meningeal sign - Abdomen Abdomen: Non tender, Non distended - Rectal Rectal: Other (no evidence of external hemorrhoids. NENO with clear yellow mucus but no purulent discharge or blood) - Derm Derm: Normal color, Warm and dry - Extremities Extremities: No deformity - Neuro Neuro: Alert and oriented X 3 Results - Vitals Vitals: Vital Signs - 24 hr 12/26/22 01:04 Temperature 35.4 C L Heart Rate 106 H Respiratory 21 Rate Blood Pressure 137/78 H O2 Saturation 94 Oxygen O2 Source Room air PD Medical Decision Making - ED course Social Determinants of Health: on home hospice. patient is the primary caregiver ED course: 82yM presents for medical evaluation after using his 's rectal suppositories in effort to have a BM due to constipation X 4 days. patient also states he has been eating less recently. He noted yellowish discharge when he tried to have a bowel movement this evening. patient has a benign physical exam with normal NENO. discussed that he should start a stool regimen with senna/docusate and miralax which he already has at home. return precautions given. plan to f/u with pcp. Departure - Departure Disposition: 01 Home, Self Care Clinical Impression: Mucus in stool Condition: Stable Instructions: ED Constipation Comments: You were seen in the emergency department for constipation and for mucus in the stool.Please start taking senna and docusate daily as well as MiraLAX daily and follow-up with your primary care provider. If you start to experience abdominal pain, fever with temperature higher than 100.4, rectal bleeding, or have other concerns, return to the emergency department for reevaluation.
== END 2022-12-26 01:36 | disposition home or self-care (01) ==
LOC: ED 00:57
DX: K59.00 Constipation, unspecified (principal); R19.5 Other fecal abnormalities; F17.200 Nicotine dependence, unspecified, uncomplicated
CPT/HCPCS: 99281; 99283

== ENCOUNTER 2022-12-26 19:34 | Outpatient (CLI) | payer MEDICARE, OTHER | END 2022-12-26 19:35 | disposition critical access hospital (66) | LOC: EMS 19:34 | DX: R06.02 Shortness of breath (principal); R42 Dizziness and giddiness | CPT/HCPCS: A0425; A0427 ==

== ENCOUNTER 2022-12-26 19:51 | Emergency (ER) | payer MEDICARE, OTHER ==
[2022-12-26] MEDS ORDERED: SODIUM CHLORIDE 0.9% 500 ML IV STA (20:16)
--- NOTE | 2022-12-26 20:19 | ED Physician Documentation ---
History of Present Illness - Stated complaint Stated Complaint: SOA - Chief complaint Chief Complaint: Resp - History obtained from History obtained from: Patient - Additonal information Additional information: 82yM, previously healthy and not on any prescription meds, with recent biphasic bronchitis diagnosis after protracted intermittent shortness of breath this past month, p/w soa today while lifting his who is on hospice. patient states he has been eating and drinking less than usual, straining himself caring for his , had a shingles vaccine today, and felt fatigued after. He was seen in the ED 3 days prior for bronchitis and given rx for prn albuterol, 7 day course of doxycycline. denies fever, cough, uri symptoms, nausea, cp, diaphoresis. PD PAST MEDICAL HISTORY - Past Medical History Cardiovascular: None Endocrine/Autoimmune: None - Past Surgical History Past Surgical History: Yes General: Appendectomy - Present Medications Home Medications: Ambulatory Orders Medication Instructions Recorded Confirmed Albuterol Sulf [Ventolin Hfa 1 - 2 puffs INH Q4HR PRN #1 each 12/23/22 Inhaler] Doxycycline [Vibramycin] 100 mg PO BID #14 tablet 12/23/22 guaiFENesin/CODEINE [Robitussin AC] 5 - 10 ml PO Q6H PRN #120 ml 12/23/22 predniSONE [Deltasone] 60 mg PO DAILY 5 Days #15 tablet 12/23/22 - Allergies Allergies/Adverse Reactions: Allergies Allergy/AdvReac Type Severity Reaction Status Date / Time No Known Drug Allergies Allergy Verified 12/26/22 20:15 - Social History Does the pt smoke?: Yes Smoking Status: Current every day smoker Does the pt drink ETOH?: No Does the pt have substance abuse?: No - Immunizations Immunizations are current?: No - POLST Patient has POLST: No PD ED PE NORMAL - Vitals Vital signs reviewed: Yes - General General: Alert and oriented X 3, No acute distress, Other (elderly and frail appearing) - HEENT HEENT: Atraumatic, PERRL, EOMI, Moist mucous membranes, Pharynx benign - Neck Neck: Supple, no meningeal sign - Cardiac Cardiac: RRR - Respiratory Respiratory: Other (BL expiratory wheezing) - Abdomen Abdomen: Non tender, Non distended - Derm Derm: Normal color, Warm and dry Results - Vitals Vitals: Vital Signs - 24 hr 12/26/22 12/26/22 12/26/22 19:57 19:59 20:55 Temperature 36.6 C Heart Rate 95 98 91 Respiratory 23 28 H 18 Rate Blood Pressure 153/74 H 144/54 H O2 Saturation 93 98 Oxygen O2 Source Room air - Labs Labs: Laboratory Tests 12/26/22 12/26/22 12/26/22 20:09 20:09 20:09 WBC 12.1 H RBC 4.50 L Hgb 14.1 Hct 43.0 MCV 95.6 H MCH 31.3 H MCHC 32.8 RDW 13.7 Plt Count 202 MPV 9.4 Neut # (Auto) 10.6 H Lymph # (Auto) 0.7 L Mcduffie # (Auto) 0.7 Eos # (Auto) 0.0 Baso # (Auto) 0.0 Absolute Nucleated RBC 0.00 Nucleated RBC % 0.0 VBG pH VBG pCO2 VBG pO2 VBG HCO3 VBG Total CO2 VBG O2 Saturation VBG Base Excess Sodium 139 Potassium 4.2 Chloride 97 L Carbon Dioxide 29 Anion Gap 13.0 BUN 24 H Creatinine 0.7 Estimated GFR (MDRD) 107 Glucose 139 H Calcium 9.1 Total Bilirubin 0.7 AST 24 ALT 19 Alkaline Phosphatase 52 B-Natriuretic Peptide 27 Total Protein 7.0 Albumin 4.0 Globulin 3.0 Albumin/Globulin Ratio 1.3 Lipase 24 12/26/22 20:09 WBC RBC Hgb Hct MCV MCH MCHC RDW Plt Count MPV Neut # (Auto) Lymph # (Auto) Mcduffie # (Auto) Eos # (Auto) Baso # (Auto) Absolute Nucleated RBC Nucleated RBC % VBG pH 7.378 VBG pCO2 50.4 VBG pO2 70.3 H VBG HCO3 29.0 H VBG Total CO2 30.6 H VBG O2 Saturation 94.2 H VBG Base Excess 2.8 H Sodium Potassium Chloride Carbon Dioxide Anion Gap BUN Creatinine Estimated GFR (MDRD) Glucose Calcium Total Bilirubin AST ALT Alkaline Phosphatase B-Natriuretic Peptide Total Protein Albumin Globulin Albumin/Globulin Ratio Lipase PD Medical Decision Making - ED course ED course: 82yM with history of shortness of breath for the past month, recently diagnosed with biphasic bronchitis, p/w soa tonight when lifting his who is on home hospice. Patient appears to be overextending himself in caring for his . I d/w his close family friend Sol who states she and their gnosticism friends can help around the home this week a bit more. Low suspicion for PE at this time given patient's VBG pattern is more c/w co2 retention of bronchitis and he has normal HR, o2 sat in 90s here in ED. He has minimal risk factors for PE given he is active, no known cancer history, no prior hx PE, no leg swelling, no hemoptysis, cough, or pleuritic pain. I do not suspect pneumonia at this time. Patient had improvement in SOA with breathing treatment here in the ED. Also administered 500cc ivf given his history of decreased oral intake, increased bun on labs. CBC, abdominal panel, VBG, CXR performed without remarkable findings except as noted. CXR unchanged from 3 days ago per my interpretation and that of outside radiologist. No evidence of developing pneumonia. He does have mild leukocytosis which is likely reactive to steroid course he is taking this week. Still has two days of 5 day treatment to complete. advised close follow up with pcp. return precautions given.
[2022-12-26 20:25] LABS: VBG PCO2 50.4 mmHg (41-51); VBG PH 7.378 (7.31-7.41); VBG PO2 70.3 mmHg (25-47)
[2022-12-26 20:26] LABS: VBG BASE EXCESS 2.8 mmol/L (-2 - +2); VBG OXYGEN SATURATION 94.2 % (60-80); VBG TOTAL CO2 30.6 mmol/L (24-29)
[2022-12-26 20:28] LABS: BASOPHILS % (AUTO) 0.1 %; HGB - HEMOGLOBIN 14.1 g/dL (14.0-18.0); LYMPHOCYTES # (AUTO) 0.7 10^3/uL (1.5-3.5); MEAN CORPUSCULAR HEMOGLOBIN 31.3 pg (27.0-31.0); MEAN CORPUSCULAR HGB CONC 32.8 g/dL (32.0-36.0); MEAN CORPUSCULAR VOLUME 95.6 fL (80.0-94.0); MEAN PLATELET VOLUME 9.4 fL (7.4-11.4); MONOCYTES # (AUTO) 0.7 10^3/uL (0.0-1.0); NEUTROPHILS # (AUTO) 10.6 10^3/uL (1.5-6.6); NEUTROPHILS % (AUTO) 87.5 %; PLT - PLATELET COUNT 202 10^3/uL (130-450); RED CELL DISTRIBUTION WIDTH 13.7 % (12.0-15.0); WHITE BLOOD COUNT 12.1 x10^3/uL (4.8-10.8)
[2022-12-26 20:36] LABS: ALBUMIN/GLOBULIN RATIO 1.3 (1.0-2.2); BILIRUBIN,TOTAL 0.7 mg/dL (0.2-1.0); CALCIUM 9.1 mg/dL (8.5-10.3); CREATININE 0.7 mg/dL (0.6-1.2); POTASSIUM 4.2 mmol/L (3.5-5.0)
[2022-12-26] MEDS ORDERED: IPRATROPIUM/ALBUTEROL 3 ML NEB INH STA (20:40)
[2022-12-26] MEDS ORDERED: ALBUTEROL NEB 2.5 MG/3 ML INH STA (21:12)
--- NOTE | 2022-12-26 21:40 | XRAY Report ---
PROCEDURE: Chest 2 View X-Ray INDICATIONS: soa TECHNIQUE: 2 views of the chest were acquired. COMPARISON: Chest x-ray 12/23/2022. FINDINGS: Surgical changes and devices: None. Lungs and pleura: No pleural effusions or pneumothorax. There is hyperinflation of the lungs with fl attening of the hemidiaphragms compatible with COPD. No acute consolidation. Mediastinum: Mediastinal contours appear normal. Heart size is normal. Bones and chest wall: No suspicious bony lesions. Overlying soft tissues appear unremarkable. IMPRESSION: 1. No acute cardiopulmonary disease. 2. Findings compatible with COPD. Reviewed by: Law Whitten MD on 12/26/2022 9:38 PM PDT Approved by: Law Whitten MD on 12/26/2022 9:38 PM PDT Station ID: [id number]
[2022-12-26 22:03] LABS: B. PARAPERTUSSIS- RESP PCR PAN NOT DETECTED; B. PERTUSSIS- RESP PCR PANEL NOT DETECTED; C. PNEUMONIAE- RESP PCR PANEL NOT DETECTED; CORONAVIRUS 229E-RESP PCR NOT DETECTED; CORONAVIRUS HKU1-RESP PCR NOT DETECTED; CORONAVIRUS NL63-RESP PCR NOT DETECTED; CORONAVIRUS OC43-RESP PCR NOT DETECTED; HUMAN METAPNEUMOVIRUS NOT DETECTED; INFLUENZA A- RESP PCR PANEL NOT DETECTED; INFLUENZA B - RESP PCR PANEL NOT DETECTED; M. PNEUMONIAE- RESP PCR PANEL NOT DETECTED; PARAINFLUENZA VIRUS 1 NOT DETECTED; PARAINFLUENZA VIRUS 2 NOT DETECTED; PARAINFLUENZA VIRUS 3 NOT DETECTED; PARAINFLUENZA VIRUS 4 DETECTED; RHINOVIRUS/ENTEROVIRUS NOT DETECTED; RSV- RESP PCR PANEL NOT DETECTED; SARS-CoV-2 -RESP PCR PANEL NOT DETECTED
[2022-12-26 22:10] VITALS: BP 120/67
== END 2022-12-26 22:13 | disposition home or self-care (01) ==
LOC: EDUNIT# → ED 19:51
DX: R06.02 Shortness of breath (principal); J40 Bronchitis, not specified as acute or chronic; F17.200 Nicotine dependence, unspecified, uncomplicated; K59.00 Constipation, unspecified; R19.5 Other fecal abnormalities; Z20.822 Contact with and (suspected) exposure to COVID-19
CPT/HCPCS: 36415; 80053; 82803; 83690; 83880; 85025; 87633; 94640; 99281; 99283; 99284

== ENCOUNTER 2023-08-25 08:00 | Outpatient (CLI) | payer MEDICARE, OTHER | END 2023-08-25 08:01 | disposition home or self-care (01) | LOC: LAB.N 08:00 | PROVIDERS: ATTEND Physician Assistant Medical | DX: U07.1 COVID-19 (principal) ==

== ENCOUNTER 2023-08-25 09:45 | Outpatient (CLI) | payer MEDICARE, OTHER ==
--- NOTE | 2023-08-25 13:23 | XRAY Report ---
PROCEDURE: Chest 2V INDICATIONS: WALKING PNEUMONIA TECHNIQUE: 2 views of the chest were acquired. COMPARISON: 12/26/2022. FINDINGS: Surgical changes and devices: None. Lungs and pleura: No pleural effusions or pneumothorax. Lungs are clear. Mediastinum: Mediastinal contours appear normal. Heart size is normal. Bones and chest wall: No suspicious bony lesions. Overlying soft tissues appear unremarkable. IMPRESSION: No acute cardiopulmonary process. Reviewed by: Rashid Cox MD on 08/25/2023 1:22 PM PST Approved by: Rashid Cox MD on 08/25/2023 1:22 PM PST Station ID: [id number]
== END 2023-08-25 10:00 | disposition home or self-care (01) ==
LOC: DI.N 09:45
PROVIDERS: ATTEND Physician Assistant Medical
DX: J18.9 Pneumonia, unspecified organism (principal); U07.1 COVID-19

== ENCOUNTER 2023-10-09 06:33 | Emergency (ER) | payer MEDICARE, OTHER ==
--- NOTE | 2023-10-09 07:25 | ED Physician Documentation ---
PD HPI HEENT - Stated complaint Stated Complaint: LT EAR PX - Chief complaint Chief Complaint: Heent - History obtained from History obtained from: Patient - Additional information Additional information: Patient is an 83-year-old male presenting for evaluation of left ear discomfort and drainage since yesterday. Patient noted starting having some discomfort in the left ear and went to Have his hearing aids checked. He was told that he has an infection in the ear. He went to his PCP to try and get a prescription but they were unable to accept walk-ins yesterday. Therefore he has presented tod ay. He does report having abnormal drainage out of the left ear. No fevers. No chest pain, difficulty breathing. No issues with the right ear. He denies a history of diabetes. Review of Systems Constitutional: denies: Fever Ears: reports: Drainage/discharge Nose: denies: Congestion Cardiac: denies: Chest pain / pressure Respiratory: denies: Dyspnea GI: denies: Abdominal Pain PD PAST MEDICAL HISTORY - Past Medical History Cardiovascular: None Endocrine/Autoimmune: None - Past Surgical History Past Surgical History: Yes General: Appendectomy - Present Medications Home Medications: Ambulatory Orders Medication Instructions Recorded Confirmed Albuterol Sulf [Ventolin Hfa 1 - 2 puffs INH Q4HR PRN #1 each 12/23/22 Inhaler] Doxycycline [Vibramycin] 100 mg PO BID #14 tablet 12/23/22 guaiFENesin/CODEINE [Robitussin AC] 5 - 10 ml PO Q6H PRN #120 ml 12/23/22 predniSONE [Deltasone] 60 mg PO DAILY 5 Days #15 tablet 12/23/22 Ofloxacin [Ofloxacin Otic drops] 10 drops LEFTEAR DAILY 7 Days #5 ml 10/09/23 - Allergies Allergies/Adverse Reactions: Allergies Allergy/AdvReac Type Severity Reaction Status Date / Time No Known Drug Allergies Allergy Verified 12/26/22 20:15 - Social History Does the pt smoke?: Yes Smoking Status: Current every day smoker Does the pt drink ETOH?: No Does the pt have substance abuse?: No - Immunizations Immunizations are current?: No - POLST Patient has POLST: No PD ED PE NORMAL - General General: Alert and oriented X 3, No acute distress, Well developed/nourished - HEENT HEENT: Atraumatic, Moist mucous membranes, Pharynx benign, Other (Right ear with hearing aid; Left TM is intact, ear canal with swelling, yellow drainage, No foreign body) - Neck Neck: Supple, no meningeal sign - Cardiac Cardiac: RRR, Strong equal pulses - Respiratory Respiratory: No respiratory distress - Derm Derm: Warm and dry - Neuro Neuro: Normal speech Results - Vitals Vitals: Vital Signs - 24 hr 10/09/23 10/09/23 06:42 07:54 Temperature 36.6 C 36.4 C L Heart Rate 77 76 Respiratory 18 18 Rate Blood Pressure 157/75 H 150/76 H O2 Saturation 95 98 Oxygen O2 Source Room air PD Medical Decision Making - ED course ED course: Patient is an 83-year-old male with left ear pain and drainage. Uses hearing aids. On exam has findings of external otitis. TM is intact. Ear wick is placed. Patient started on otic drops. Patient counseled regarding diagnosis, treatment plan and concerning symptoms to return for. Departure - Departure Disposition: 01 Home, Self Care Clinical Impression: External otitis of left ear Condition: Stable Instructions: ED Otitis Externa Prescriptions: Ofloxacin [Ofloxacin Otic drops] 10 drops LEFTEAR DAILY 7 Days #5 ml Comments: You have an ear infection in your left ear canal. Please do not use your hearing aid until the infection clears up. I have sent an antibiotic drop prescription to [facility] in [place]. Please use this as directed. I have also placed an ear wick into the ear canal to make sure that the antibiotic drops gets all the way down the canal. If this falls out you do not need to return to have it replaced. I would recommend a recheck of the ear canal in about a week with your PCP to make sure that your infection has cleared up prior to Resuming your hearing aid use. Return to the emergency department with any concerns. Forms: PCP List Discharge Date/Time: 10/09/23 07:54
[2023-10-09 08:00] VITALS: BP 150/76; O2SAT 98
== END 2023-10-09 07:54 | disposition home or self-care (01) ==
LOC: ED 06:33
DX: H60.92 Unspecified otitis externa, left ear (principal); F17.200 Nicotine dependence, unspecified, uncomplicated; Z79.899 Other long term (current) drug therapy
CPT/HCPCS: 99282; 99283

== ENCOUNTER 2023-12-26 19:55 | Outpatient (CLI) | payer MEDICARE, OTHER | END 2023-12-26 23:59 | disposition EMS.NT | LOC: EMS 19:55 | DX: R42 Dizziness and giddiness (principal); R11.0 Nausea; R00.1 Bradycardia, unspecified ==